=== PATIENT | male | born 1975 ===

== ENCOUNTER 2020-05-18 17:48 | Observation (INO) | payer OTHER ==
[~2020-05-18] VITALS: Ht 180.3 cm; Wt 145.3 kg
[2020-05-18 19:49] LABS: Influenza A, PCR NEGATIVE (NEGATIVE); Influenza B, PCR NEGATIVE (NEGATIVE); Resp Syncytial Virus, PCR NEGATIVE (NEGATIVE); SARS-Cov-2 (COVID-19) PCR, MMC NEGATIVE (NEGATIVE)
--- NOTE | 2020-05-18 20:06 | NUR ---
PT INTO SDS VIA [facility] FROM ER. History, Chart, Medications and Allergies reviewed before start of procedure.PT REPORTS BEING NPO SINCE 1729 WHEN HE "SWALLOWED A CHICKEN BONE". Lungs clear T/O to Auscultation. Patient States Post-Procedure ride home has been arranged WITH SISTER IF DISCHARGED TONIGHT.
--- NOTE | 2020-05-18 20:39 | NUR ---
05/18/202038 Ann Marie Alvarado History, Chart, Medications and Allergies reviewed before start of procedure.See Anesthesia record. Bite Block Placed.
--- NOTE | 2020-05-18 22:03 | NUR ---
PACU RECOVERY PATIENT AWAKE AND ON RA, SLIGHT DRY COUGH, AND SLIGHT PAIN TO THROAT. PATIENT VERBALIZED UNDERSTANDING ON GOING SLOW WITH PO INTAKE. PATIENTS AND SISTER AT BEDSIDE AND GOING HOME FOR THE NIGHT. PLAN FOR DC IN THE MORNING PER DOCTOR GARSIA. REPORT CALLED TO JONG BRAY PATIENT TRANSFER TO ROOM 309 POST PACU RECOVERY.
--- NOTE | 2020-05-19 04:58 | NUR ---
BRAID FOLDER SUMMARY 2220 PT ADMITTED TO MEDICAL FLOOR AT THIS TIME. PT WAS TRANSFERED FROM PACU FROM RECENT SURGERY. PT IS A/O X4, TRANFERS WITH STANDBY ASSIST. PT IS EXPERIENCING DIZZINESS FROM GENERALIZED ANESTHESIA. BED ALARM IS ON. DENIES PAIN OTHER THAN SORE THROAT WHICH IS TO BE EXPECTED. TOLERATING ICE CHIPS WELL. PT HAS SLEPT WELL TONIGHT SO HAS NOT ATTEMPTED TO DRINK LIQUIDS. ROOM AIR MAINTAININING GOOD SATS. ONGOING POST OP VITALS IN PLACE. PLEASANT AND COOPERATIVE. VSS. WILL CONTINUE TO MONITOR.
--- NOTE | 2020-05-19 09:48 | NUR ---
DISCHARGE SUMMARY PATIENT DISCHARGED TO HOME. PATIENT ALERT AND ORIENTED THIS SHIFT. PATIENT SHOWERED INDEPENDENTLY THIS SHIFT. IV REMOVED PRIOR TO DISCHARGE. DISCHARGE INSTRUCTIONS EXPLAINED TO PATIENT. NO DISCHARGE MEDICATIONS. PATIENT DENIES QUESTIONS AT THIS TIME. PATIENT TO VEHICLE BY WHEELCHAIR. FAMILY PROVIDING TRANSPORTATION HOME.
== END 2020-05-19 09:22 | disposition home or self-care (01) ==
LOC: ER 17:48 → MEDS 21:36 → ENPENDDIS 05-19 07:47 → MEDS 05-19 09:22
PROVIDERS: Emergency Medicine; ADMIT Internal Medicine Gastroenterology
PROC: 0DC58ZZ Extirpation of Matter from Esophagus, Via Natural or Artificial Opening Endoscopic (ICD-10-PCS; principal; 2020-05-18 20:00)
DX: T18.128A Food in esophagus causing other injury, initial encounter (principal); X58.XXXA Exposure to other specified factors, initial encounter; G47.33 Obstructive sleep apnea (adult) (pediatric); E66.01 Morbid (severe) obesity due to excess calories; Z68.41 Body mass index [BMI] 40.0-44.9, adult; Z20.822 Contact with and (suspected) exposure to COVID-19; Z87.891 Personal history of nicotine dependence
CPT/HCPCS: 0241U; 36415; 70360; 96374-59; 99284-25; G0378; J0330; J1100; J2250; J2405; J2704; J3010; J7030; J7120

== ENCOUNTER 2021-02-25 15:08 | Inpatient (IN) | payer OTHER ==
[~2021-02-25] VITALS: Ht 180.3 cm; Wt 145.0 kg
[2021-02-25 15:55] LABS: Calcium, Ionized (POC) 1.06 mmol/L (1.10-1.46); Chloride (POC) 103 mmol/L (98-108); Glucose (ISTAT POC) 135 mg/dL (70-99); Hemoglobin (POC) 14.6 g/dL (13.5-17.5); Potassium (POC) 3.9 mmol/L (3.5-5.5); Sodium (POC) 138 mmol/L (135-148); Total CO2 (POC) 25 mmol/L (21-32)
[2021-02-25 16:08] LABS: Influenza A, PCR NEGATIVE (NEGATIVE); Influenza B, PCR NEGATIVE (NEGATIVE); Resp Syncytial Virus, PCR NEGATIVE (NEGATIVE); SARS-Cov-2 (COVID-19) PCR, MMC NEGATIVE (NEGATIVE)
[2021-02-25 16:18] LABS: BASOPHILS ABSOLUTE AUTO 0.04 K/mm3 (0.00-0.23); BASOPHILS PERCENT AUTO 0 % (0-2); EOSINOPHILS ABSOLUTE AUTO 0.23 K/mm3 (0.00-0.68); EOSINOPHILS PERCENT AUTO 2 % (0-6); Hematocrit 43.4 % (37.0-53.0); Hemoglobin 14.5 g/dL (13.5-17.5); IMMATURE GRAN ABSOLUTE AUTO 0.04 K/mm3 (0.00-0.10); IMMATURE GRAN PERCENT AUTO 0 % (0-1); LYMPHOCYTES ABSOLUTE AUTO 3.62 K/mm3 (0.84-5.20); LYMPHOCYTES PERCENT AUTO 28 % (21-46); MONOCYTES ABSOLUTE AUTO 0.73 K/mm3 (0.16-1.47); MONOCYTES PERCENT AUTO 6 % (4-13); Mean Corpuscular HGB 28.8 pg (26.0-34.0); Mean Corpuscular HGB Conc 33.4 g/dL (31.5-36.5); Mean Corpuscular Volume 86 fL (80-100); NEUTROPHILS ABSOLUTE AUTO 8.41 K/mm3 (1.96-9.15); NEUTROPHILS PERCENT AUTO 64 % (41-73); RDW Coefficient Variation 13.2 % (11.7-14.2); RDW Standard Deviation 41.6 fL (35.1-46.3); Red Blood Cell Count 5.03 M/mm3 (4.30-5.90); White Blood Cell Count 13.07 K/mm3 (4.00-11.30)
[2021-02-25 16:21] LABS: Alanine Aminotransfer (ALT/SGP 46 U/L (12-78); Albumin, Blood 3.4 g/dL (3.4-5.0); Albumin/Globulin Ratio 0.7 (0.8-1.8); Alk Phos 84 U/L (50-136); Anion Gap 5 mmol/L (6-16); Aspartate Aminotrans (AST/SGOT 35 U/L (12-37); Bilirubin, Total 0.8 mg/dL (0.1-1.0); Blood Urea Nitrogen 14 mg/dL (8-24); CO2, Blood 26 mmol/L (21-32); Calcium, Blood 8.5 mg/dL (8.5-10.1); Chloride, Blood 105 mmol/L (98-108); Creatinine, Blood 0.94 mg/dL (0.60-1.20); Globulin, Blood 4.8 g/dL (2.2-4.0); Glomerular Filtration Rate >60 (60-); Glucose, Blood 140 mg/dL (70-99); Potassium, Blood 3.9 mmol/L (3.5-5.5); Sodium, Blood 136 mmol/L (136-145); Total Protein, Blood 8.2 g/dL (6.4-8.2); Troponin I <0.015 ng/mL (0.000-0.040)
[2021-02-25 16:50] LABS: Platelet Count 260 K/mm3 (150-400)
[2021-02-25 16:54] LABS: Mean Platelet Volume 10.7 fL (9.1-12.4)
[2021-02-25 16:55] LABS: D-Dimer, Quantitative 1.35 mg/L FEU (0.00-0.52); International Normalized Ratio 1.11; Prothrombin Time Results 11.6 Sec (9.7-11.5)
[2021-02-25 17:22] LABS: CHOL/HDL RATIO 5.2; Cholesterol 173 mg/dL (50-200); HDL Cholesterol 33 mg/dL (>39); LDL/HDL RATIO 3.5; Low Density Lipoprotein Chol 117 mg/dL (0-110); Magnesium, Blood 2.3 mg/dL (1.6-2.4); Triglycerides 116 mg/dL (30-160); Very Low Density Lipoprot Chol 23 mg/dL (6-32)
--- NOTE | 2021-02-25 19:18 | NUR ---
Pt is A&O, pleasant with cares. Pt was admitted to floor around 1800. VSS on RA, BP was elavated initially, but has been titrating down. Site looks good, soft nontender. No oozing seen. 2cc were removed close to 1700 due to pt reporting a numb feeling in hand. Circulation looks good and pulse ox on finder on right hand and reading well. IV fluids started per orders, NS @100ml/hr. Pt will be having CTA, good working IV in left AC. I called cariology to clarify if heparin gtt needed to be continued, Dr. Zhang stated to d/c heparin. Plan is for repeat ECHO in AM. PO lasix and ibuprofen given. Pt does not report any chest pain at this time. at bedside.
--- NOTE | 2021-02-25 19:59 | NUR ---
PT UPDATE PT REPORTS SHORTNESS OF BREATHE. SP02>94% ON RA. CALL PLACED TO MD MILLIGAN. MD MILLIGAN WITH ORDERS FOR PRN ALBUTEROL TREATMENTS W/ RT.
--- NOTE | 2021-02-25 23:38 | NUR ---
TR BAND TR BAND OFF AT THIS TIME. NO BRUISING, NO BLEEDING, NO HEMATOMA. PULSE PALPABLE, PERFUSION NOTED. OPSITE APPLIED. ARM BOARD IN PLACE.
[2021-02-26 00:50] LABS: Hematocrit 42.1 % (37.0-53.0); Hemoglobin 13.8 g/dL (13.5-17.5); Mean Corpuscular HGB Conc 32.8 g/dL (31.5-36.5); Mean Corpuscular Volume 88 fL (80-100); Mean Platelet Volume 9.7 fL (9.1-12.4); Platelet Count 289 K/mm3 (150-400); RDW Coefficient Variation 13.3 % (11.7-14.2); RDW Standard Deviation 43.4 fL (35.1-46.3); Red Blood Cell Count 4.76 M/mm3 (4.30-5.90)
[2021-02-26 01:11] LABS: Anion Gap 7 mmol/L (6-16); Blood Urea Nitrogen 15 mg/dL (8-24); Bun/Creatinine Ratio 13.9 (12.0-20.0); CO2, Blood 26 mmol/L (21-32); Calcium, Blood 8.6 mg/dL (8.5-10.1); Chloride, Blood 105 mmol/L (98-108); Cholesterol 174 mg/dL (50-200); Creatinine, Blood 1.08 mg/dL (0.60-1.20); Glomerular Filtration Rate >60 (60-); Glucose, Blood 110 mg/dL (70-99); HDL Cholesterol 29 mg/dL (>39); LDL/HDL RATIO 4.1; Low Density Lipoprotein Chol 118 mg/dL (0-110); Potassium, Blood 3.5 mmol/L (3.5-5.5); Sodium, Blood 138 mmol/L (136-145); Triglycerides 133 mg/dL (30-160); Troponin I <0.015 ng/mL (0.000-0.040); Very Low Density Lipoprot Chol 26 mg/dL (6-32)
--- NOTE | 2021-02-26 06:02 | NUR ---
SHIFT SUMMARY PT A&OX4, PLEASANT. SP02>92% ON RA. PT C/O OF OCCASIONAL SOB. PRN NEB TREATMENTS VIA RT, SEE PREVIOUS NOTE. PT HAS DRY, NON PRODUCTIVE COUGH. TELEMETRY SHOWS NSR, HR 80'S. VSS. PT HAS R RADIAL SITE, RECOVERED, ARM BOARD IN PLACE. NO BLEEDING, BRUISING, OR HEMATOMA. PT C/O OF 2/10 CP A FEW TIMES. CALL PLACED TO MD CHAPPELL. MD CHAPPELL WITH ORDERS FOR TRAMADOL PRN. PT USED URINAL AT BEDSIDE. UP TO BATHROOM TO HAVE BM X1 THIS SHIFT. EAGER TO TAKE A SHOWER. PT DOWN TO CT AT BEGINNING OF SHIFT. NS INFUSED X1 BAG PER EMAR. PT ONLY SLEPT A FEW HOURS DURING SHIFT. CALL LIGHT IN REACH.
--- NOTE | 2021-02-26 18:43 | NUR ---
Pt A&OX4. PT IS PLEASANT. C/O SOB WHILE LAYING DOWN. SPO2 STAYED BETWEEN 98%-100%. PT REPORTS RELIEF AFTER NEBULIZER TREATMENT. PT C/O CHEST PAIN WHILE AT REST X1 AND RATED 2/10. PT WAS RELIEVED WITHIN MINUTES, NO MEDICATION NEEDED. PT REPORTS DRY COUGH AND HEADACHE OCCASIONALLY. PT USES URINAL AND INDEPENDENTLY USES BATHROOM. RIGHT RADIAL ACCESS SITE WNL AND ARMBOARD IN PLACE.
--- NOTE | 2021-02-27 05:14 | NUR ---
SHIFT SUMMARY PT A&OX4. SP02>90% ON RA. PT WORE 2L NC AT BEGINNING OF SHIFT, BUT REMOVED IT MID SHIFT AND CONTINUED TO SAT FINE. DRY COUGH NOTED. END OF SHIFT PT STATES IT FEELS BETTER TO BREATHE, FIRST TIME HE COULD LAY FLAT IN A MONTH. TELEMETRY SHOWS NSR, HR 70'S-90'S. VSS. PT USED URINAL AT BEDSIDE. PT C/O OF UNCOMFORTABLE MATTERESS, FOUND UP SITTING IN A CHAIR AT 3 AM. EGG CRATE FOAM PLACED ON MATTRESS WITH SOME RELIEF. PT DENIES ANY CP DURING SHIFT. CALL LIGHT IN REACH.
--- NOTE | 2021-02-27 18:17 | NUR ---
SHIFT NOTE PT HAS BEEN RESTING WELL IN BED T/O THE DAY. HE DID REPORT A BRIEF EPISODE OF MILD CP THIS AM WHICH RESOLVED WITHIN A MINUTE WITHOUT INTERVENTION. PT A/O X4. VSS. DENIES FURTHER CP, DENIES SOB. RADIAL ACCESS INTACT. PT HAS BEEN UP TO SHOWER TODAY. AWAITING RESULTS OF ECHO AT THIS TIME.
--- NOTE | 2021-02-28 05:04 | NUR ---
SHIFT SUMMARY NO ACUTE CHANGES THIS SHIFT. VSS. PT AXO. ON RA. IN SR. DENYING CP/PRESSURE. PT INDEPENDENT IN ROOM. AWAITING ECHO RESULTS. TR BAND SITE WITH OPSITE WITHOUT HEMATOMA. ARMBOARD OFF NOW. OTHERWISE, PT RESTING IN ROOM QUIETELY. USING CALL LIGHT APPROPRIATELY.
--- NOTE | 2021-02-28 12:40 | NUR ---
Echocardiogram completed.
--- NOTE | 2021-02-28 18:31 | NUR ---
SHIFT SUMMARY; ASSUMED CARE AT 0700. A/A/OX4. INDEPDANT IN ROOM. DENIES CP OR SOB. VSS. NO ACUTE MEDICAL CHANGES DURING SHIFT. PLEASANT AND COOPERATIVE WITH CARE. WILL CONTINUE TO MONITOR AND TREAT UNTIL CHANGE OF SHIFT.
--- NOTE | 2021-02-28 21:32 | NUR ---
ASSUMED CARE. AOX3, INDEPENDENT IN THE ROOM. REPORTS THAT HE DOES GET SOB WHEN HE BENDS OVER TO PICK SOMETHING UP OR AT TIMES WHEN HE LAYS FLAT. HE IS AFRAID OF THAT OCCURRING TONIGHT THE DOCTOR HAD TOLD HIM THAT HE HAS MORE FLUID ON THE HEART. HE IS WORRIED THAT HE CAN NOT GO HOME. LUNG SOUNDS ARE CLEAR. HR AT THIS TIME IS SINUS. NO EDEMA, NO PAIN. ABLE TO MOVE FREELY IN THE ROOM WITH NO ISSUES AT THIS TIME. CALL LIGHT IS IN REACH. WILL MONITOR.
--- NOTE | 2021-03-01 06:16 | NUR ---
SHIFT SUMMARY: AOX3, INDEPENDENT. ABLE TO MOVE AROUND FREELY IN ROOM WITH SCANT AMOUNT OF SOB. STATES HE ONLY FEELS IT WHEN HE BENDS OVER OR LAYS FLAT. DID HAVE ONE EPISODE WHERE HE PICKED UP SOMETHING OFF THE FLOOR AND REPORTED VISION GOING BLACK, DIZZINESS, BUT IT WAS SHORT LIVED AND DID NOT OCCUR AGAIN. VS HAVE BEEN STABLE, TELE WNL. MD DID INFORM HIM THAT THE FLUID HAS INCREASED SOME IN THE PERICARDIAL, WHICH HE IS WORRIED ABOUT. PLAN IS FOR ANOTHER ECHO AND POSSIBLE PERICARDIOCENTISIS. DEPENDING ON ECHO HE MAY GO HOME WELL. NO ACUTE CHANGES, CALL LIGHT REMAINS IN REACH.
--- NOTE | 2021-03-01 12:05 | NUR ---
Echocardiogram completed.
[2021-03-01] MEDS ORDERED: COLCHICINE0.6 MG PO (18:34)
[2021-03-01] MEDS ORDERED: IBU800 M1 PO (18:34)
--- NOTE | 2021-03-01 18:55 | NUR ---
DISCHARGED EDUCATION REVIEWED WITH PT INCLUDING FOLLOW UP APPOINTMENTS, MEDICATION LIST, NEW PRESCRIPTIONS, AND EDUCATION MATERIAL. PT VERBALIZES UNDERSTANDING, NO QUESTIONS OR CONCERNS. RXs SENT TO PT'S PHARMACY OF CHOICE. NO DISCHARGE NEEDS IDENTIFIED. ALL BELONGINGS SENT HOME WITH PT. PT DISCHARGED IN THE CARE OF FAMILY. AMBULATORY GAIT STEADY.
--- NOTE | 2021-03-01 19:23 | NUR ---
DISCHARGE NOTE ANIL HUNTER RN DISCHARGED PT. THIS NURSE WAS IN PT ROOM WHEN DR ALVARADO WENT OVER PLAN OF CARE TO CONDUCT ANOTHER ECHO ON TUESDAY WELL PLAN TO DISCHATGE. VITAL SIGNS WERE STABLE T/O SHIFT. NO ACUTE CHANGES NOTED.
== END 2021-03-01 18:55 | disposition home or self-care (01) | DRG 287 ==
LOC: ER 15:08 → PCU 15:09 → ICUW 15:09 → PCU 15:10 → ICUW 16:39 → ER 16:39 → PCU 16:39 → ICUW 17:59 → PCU 17:59
PROVIDERS: Emergency Medicine; Physician Assistant; ADMIT Internal Medicine
PROC: B2111ZZ Fluoroscopy of Multiple Coronary Arteries using Low Osmolar Contrast (ICD-10-PCS; principal; 2021-02-25)
DX: I30.9 Acute pericarditis, unspecified (principal); B34.9 Viral infection, unspecified; E66.01 Morbid (severe) obesity due to excess calories; Z20.822 Contact with and (suspected) exposure to COVID-19; E78.5 Hyperlipidemia, unspecified; G47.33 Obstructive sleep apnea (adult) (pediatric); Z98.890 Other specified postprocedural states; Z87.891 Personal history of nicotine dependence; Z68.39 Body mass index [BMI] 39.0-39.9, adult; Z53.29 Procedure and treatment not carried out because of patient's decision for other reasons
CPT/HCPCS: 0241U; 36415; 71045; 71260; 76937; 80047; 80048; 80053; 80061; 83735; 83880; 84443; 84484; 85014; 85025; 85027; 85379; 85610; 85730; 86850; 86900; 86901; 93005; 93010; 93306; 93308; 93321; 93454; 94640; 94760; 96372; 96374; 99152; 99153; 99285-25; A9270; C1769; C1887; C1894; G0378; J1644; J1650; J2250; J3010; J7030; J7050; Q9967

== ENCOUNTER 2022-02-12 20:17 | Emergency (ER) | payer OTHER ==
[~2022-02-12] VITALS: Ht 180.3 cm; Wt 136.1 kg
[~2022-02-12 20:17] MED LIST: COLCHICINE0.6 MG PO; IBU800 M1 PO
== END 2022-02-12 20:46 | disposition home or self-care (01) ==
LOC: ER 20:17
DX: S29.012A Strain of muscle and tendon of back wall of thorax, initial encounter (principal); W01.198A Fall on same level from slipping, tripping and stumbling with subsequent striking against other object, initial encounter; Y99.0 Civilian activity done for income or pay; E66.01 Morbid (severe) obesity due to excess calories; Z68.41 Body mass index [BMI] 40.0-44.9, adult; Z87.891 Personal history of nicotine dependence; Z79.899 Other long term (current) drug therapy
CPT/HCPCS: 99282

== ENCOUNTER 2022-10-10 11:25 | Emergency (ER) | payer SELFPAY ==
[~2022-10-10] VITALS: Ht 180.3 cm; Wt 147.4 kg
[2022-10-10 12:07] LABS: BASOPHILS ABSOLUTE AUTO 0.04 K/mm3 (0.00-0.23); BASOPHILS PERCENT AUTO 0 % (0-2); EOSINOPHILS ABSOLUTE AUTO 0.21 K/mm3 (0.00-0.68); EOSINOPHILS PERCENT AUTO 2 % (0-6); Hematocrit 48.3 % (37.0-53.0); Hemoglobin 16.4 g/dL (13.5-17.5); IMMATURE GRAN ABSOLUTE AUTO 0.02 K/mm3 (0.00-0.10); IMMATURE GRAN PERCENT AUTO 0 % (0-1); LYMPHOCYTES ABSOLUTE AUTO 3.07 K/mm3 (0.84-5.20); LYMPHOCYTES PERCENT AUTO 31 % (21-46); MONOCYTES ABSOLUTE AUTO 0.44 K/mm3 (0.16-1.47); MONOCYTES PERCENT AUTO 4 % (4-13); Mean Corpuscular HGB 29.1 pg (26.0-34.0); Mean Corpuscular Volume 86 fL (80-100); Mean Platelet Volume 10.8 fL (9.1-12.4); NEUTROPHILS ABSOLUTE AUTO 6.21 K/mm3 (1.96-9.15); NEUTROPHILS PERCENT AUTO 62 % (41-73); Platelet Count 212 K/mm3 (150-400); RDW Coefficient Variation 13.5 % (11.7-14.2); RDW Standard Deviation 42.3 fL (35.1-46.3); Red Blood Cell Count 5.63 M/mm3 (4.30-5.90); White Blood Cell Count 9.99 K/mm3 (4.00-11.30)
[2022-10-10 12:28] LABS: Albumin, Blood 3.9 g/dL (3.4-5.0); Bilirubin, Total 0.5 mg/dL (0.1-1.0); Bun/Creatinine Ratio 11.8 (12.0-20.0); Calcium, Blood 8.8 mg/dL (8.5-10.1); Creatinine, Blood 0.93 mg/dL (0.60-1.20); Potassium, Blood 4.1 mmol/L (3.5-5.5); Total Protein, Blood 7.9 g/dL (6.4-8.2)
[2022-10-10 16:58] VITALS: BP 156/105
== END 2022-10-10 17:08 | disposition home or self-care (01) ==
LOC: ER 11:25
PROVIDERS: Emergency Medicine
DX: R07.9 Chest pain, unspecified (principal); G47.33 Obstructive sleep apnea (adult) (pediatric); Z87.891 Personal history of nicotine dependence
CPT/HCPCS: 71045; 80053; 83880; 84484; 85025; 93005; 93010; 93971; 99284-25

== ENCOUNTER → 2024-10-11 | Outpatient (CLI) | payer SELFPAY ==
[2024-10-11 09:15] LABS: BASOPHILS ABSOLUTE AUTO 0.04 K/mm3 (0.00-0.23); BASOPHILS PERCENT AUTO 1 % (0-2); EOSINOPHILS ABSOLUTE AUTO 0.13 K/mm3 (0.00-0.68); EOSINOPHILS PERCENT AUTO 2 % (0-6); Hematocrit 48.4 % (37.0-53.0); Hemoglobin 16.9 g/dL (13.5-17.5); IMMATURE GRAN ABSOLUTE AUTO 0.03 K/mm3 (0.00-0.10); IMMATURE GRAN PERCENT AUTO 0 % (0-1); LYMPHOCYTES ABSOLUTE AUTO 2.79 K/mm3 (0.84-5.20); LYMPHOCYTES PERCENT AUTO 33 % (21-46); MONOCYTES ABSOLUTE AUTO 0.42 K/mm3 (0.16-1.47); MONOCYTES PERCENT AUTO 5 % (4-13); Mean Corpuscular HGB Conc 34.9 g/dL (31.5-36.5); Mean Corpuscular Volume 86 fL (80-100); NEUTROPHILS ABSOLUTE AUTO 5.10 K/mm3 (1.96-9.15); NEUTROPHILS PERCENT AUTO 60 % (41-73); NRBC ABSOLUTE 0.00 K/mm3 (0.00-0.02); NRBC Auto 0.0 /100 WBC (0.0-0.2); Platelet Count 172 K/mm3 (150-400); RDW Coefficient Variation 12.3 % (11.7-14.2); RDW Standard Deviation 38.2 fL (35.1-46.3)
[2024-10-11 09:28] LABS: Alanine Aminotransfer (ALT/SGP 31.0 U/L (12-78); Albumin, Blood 3.8 g/dL (3.4-5.0); Albumin/Globulin Ratio 1.0 (0.8-1.8); Anion Gap 13.0 mmol/L (3-11); Aspartate Aminotrans (AST/SGOT 17.0 U/L (12-37); Bilirubin, Total 0.5 mg/dL (0.1-1.0); Blood Urea Nitrogen 14.0 mg/dL (8-24); CO2, Blood 24.0 mmol/L (21-32); Calcium, Blood 8.9 mg/dL (8.5-10.1); Chloride, Blood 96.0 mmol/L (98-108); Creatinine, Blood 1.21 mg/dL (0.60-1.20); Globulin, Blood 3.8 g/dL (2.2-4.0); Potassium, Blood 4.4 mmol/L (3.5-5.5); Sodium, Blood 129.0 mmol/L (136-145); Total Protein, Blood 7.6 g/dL (6.4-8.2)
[2024-10-11 09:29] LABS: Glucose, Blood 684.0 mg/dL (70-99)
== END | disposition home or self-care (01) ==
LOC: LAB SHORT 09:09 → LAB 09:09
PROVIDERS: Family Medicine
DX: R73.9 Hyperglycemia, unspecified (principal)
CPT/HCPCS: 80053; 83036; 85025